=== PATIENT | male | born 1995 | race Hispanic/Latino ===

== ENCOUNTER 2024-03-12 12:41 | Emergency (ER) | payer SELFPAY ==
[~2024-03-12] VITALS: Ht 170.2 cm; Wt 67.0 kg
[2024-03-12] MEDS ORDERED: LACTATED RINGER'S 1,000 ML IV ONE (14:05)
[2024-03-12 14:37] LABS: BASO% 0.4 % (0-3); EOS% 0.2 % (0-8); HEMATOCRIT 47.2 % (39.0-50.0); HEMOGLOBIN 15.9 g/dl (14.0-18.0); IMMATURE GRANULOCYTES 0.5 % (0.0-5.0); LYMPH% 11.8 % (15-41); MEAN CELL VOLUME 87.2 fL CALC (80.0-100.0); MEAN CORPUSCULAR HGB 29.4 pG CALC (26.0-32.0); MEAN CORPUSCULAR HGB CONC 33.7 g/dL CAL (32.0-36.0); MONO% 7.2 % (2-13); NEUT# 6.69 thou/uL (1.82-7.42); NEUT% 79.9 % (42-76); RED BLOOD COUNT 5.41 mill/uL (4.70-6.10); RED CELL DISTRI WIDTH 13.2 % (11.5-15.5)
[2024-03-12 14:41] LABS: ALBUMIN 4.7 g/dL (3.2-5.0); BILIRUBIN, TOTAL 0.9 mg/dL (0.2-1.3); CREATININE 0.9 mg/dL (0.7-1.3); TOTAL PROTEIN 8.3 g/dL (6.3-8.2)
[2024-03-12 14:56] LABS: URINE BILIRUBIN - DIPSTICK Negative (NEGATIVE); URINE BLOOD DIPSTICK Negative (NEGATIVE); URINE GLUCOSE - DIPSTICK Negative (NEGATIVE); URINE KETONE Trace mg/dL (NEGATIVE); URINE LEUK ESTERASE Negative (NEGATIVE); URINE NITRITE - DIPSTICK Negative (Negative); URINE PROTEIN - DIPSTICK Negative (NEG-TRACE)
[2024-03-12 14:58] LABS: URINE COLOR Yellow
[2024-03-12 15:12] VITALS: BP 126/87
== END 2024-03-12 15:20 | disposition home or self-care (01) | DRG 866 ==
LOC: ED 12:41
PROVIDERS: Nurse Practitioner
DX: B34.9 Viral infection, unspecified (principal); Z20.822 Contact with and (suspected) exposure to COVID-19